=== PATIENT | male | born 1970 | race Caucasian/White ===

== ENCOUNTER 2016-03-15 14:00 | Emergency (ER) | payer MEDICAID ==
[2016-03-15 14:21] LABS: Hematocrit 41.6 % (42.0-52.0); Hemoglobin 14.4 gm/dL (13.5-18.0); Mean Cell Volume 89.5 fl (78-100); Mean Corpuscular Hgb Conc 34.6 g/dl (32-36); Mean Platelet Volume 9.4 fl (6.0-9.5); Neutrophil # 11.6 K/mm3 (1.3-6.0); Neutrophil % 67.9 % (42-75.0); Platelet Count 332 K/mm3 (150-450); Red Blood Count 4.65 M/mm3 (4.7-6.0); Red Cell Distribution Width 12.5 % (11.5-14.0); White Blood Count 17.2 K/mm3 (4.0-10.5)
[2016-03-15 14:38] LABS: Prothrombin Time (Patient) 10.8 Seconds (9.4-11.4)
[2016-03-15 14:39] LABS: INR 1.04 INR (0.90-1.10); Partial Thrombolplastin Time 25.1 Seconds (24-32)
[2016-03-15 14:47] LABS: Albumin * 3.4 gm/dl (3.4-5.0); Anion Gap 15.6 mmol/L (6.8-13.8); BUN/Creatinine Ratio 10.3 (9.0-21.6); Bilirubin, Total 0.9 mg/dL (0.0-1.1); Ca. Corrected For Albumin 8.2 mg/dL (8.4-10.2); Carbon Dioxide 22.4 mmol/L (24-32.6); Total Protein 6.5 gm/dL (6.2-8.2)
[2016-03-15 14:54] VITALS: BP 172/124
[2016-03-15] MEDS ORDERED: ROCURONIUM BROMIDE 10 MG/ML VIAL IV ONE (14:57)
[2016-03-15] MEDS ORDERED: PROPOFOL VIAL IV ONE (14:59)
[2016-03-15] MEDS ORDERED: SUCCINYLCHOLINE CHLORIDE 20 MG/ML VIAL IV ONE (14:59)
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
--- NOTE | 2016-03-18 13:37 | PN ---
Progess Note - Interim Narrative: 03/18/16 13:36 Addendum to H&P from 03/15/16 Time of service: 4884-0678 Critical Care time: 40 minutes ROS: unobtainable 03/18/16 13:39 Impression should read: Respiratory arrest Traumatic brain injury Open left tib-fib fracture with neurovascular injury Left femur fracture Left ankle derangement
== END 2016-03-15 14:45 | disposition short-term general hospital (02) ==
LOC: ER 14:00
PROC: 0BH17EZ Insertion of Endotracheal Airway into Trachea, Via Natural or Artificial Opening (ICD-10-PCS; principal; 2016-03-15)
PROC: 0T9B70Z Drainage of Bladder with Drainage Device, Via Natural or Artificial Opening (ICD-10-PCS; 2016-03-15)
DX: S06.9X0A Unspecified intracranial injury without loss of consciousness, initial encounter (principal); R09.2 Respiratory arrest; S82.202B Unspecified fracture of shaft of left tibia, initial encounter for open fracture type I or II; S82.402B Unspecified fracture of shaft of left fibula, initial encounter for open fracture type I or II; V43.52XA Car driver injured in collision with other type car in traffic accident, initial encounter; S72.92XA Unspecified fracture of left femur, initial encounter for closed fracture; M24.872 Other specific joint derangements of left ankle, not elsewhere classified; S84.802A Injury of other nerves at lower leg level, left leg, initial encounter; T68.XXXA Hypothermia, initial encounter; X31.XXXA Exposure to excessive natural cold, initial encounter
CPT/HCPCS: 31500; 36415; 51702; 71010; 80053; 85025; 85610; 85730; 86850; 86900; 99291; G0390

== ENCOUNTER 2016-08-21 12:49 | Emergency (ER) | payer MEDICAID ==
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
--- OUTSIDE RECORDS SUMMARY | 2016-08-21 13:26 | XMS REPORT | Continuity of Care Document ---
:1970 Author Organization [facility] [place] [address] Care Team Providers Name Role Phone Africa Godinez Primary Care Provider [phone] Source Comments This disclosure is being made pursuant to the [employer] program and maynot contain all information available regarding this patient.[facility] Active Allergies and Adverse Reactions Not on File Current Medications Be aware that medications may not be up to date as of this document. Alwaysverify current medications with the patient. Not on file Active Problems Not on file Social History Tobacco Use Types Packs/Day Years Used Date Never Assessed Plan of Care Health Maintenance Due Date Last Done Comments Retired-Pertussis Vaccine Adult 1987 Retired-Tetanus Vaccine Adult 1987 Retired-INFLUENZA VACCINE 11/11/2014 Results from Last 3 Months Not on file
[2016-08-21] MEDS ORDERED: DICYCLOMINE HCL 10 MG/ML AMPUL IM ONE ×2 (13:31→13:37)
[2016-08-21] MEDS ORDERED: NORMAL SALINE 1,000 ML IV ONE (13:31)
[2016-08-21 13:45] LABS: Hematocrit 43.5 % (42.0-52.0); Hemoglobin 15.3 gm/dL (13.5-18.0); Mean Cell Volume 86.1 fl (78-100); Mean Corpuscular Hemoglobin 30.3 pg (27-31); Mean Corpuscular Hgb Conc 35.2 g/dl (32-36); Mean Platelet Volume 9.5 fl (6.0-9.5); Neutrophil # 8.2 K/mm3 (1.3-6.0); Neutrophil % 73.3 % (42-75.0); Platelet Count 311 K/mm3 (150-450); Red Blood Count 5.05 M/mm3 (4.7-6.0); Red Cell Distribution Width 13.5 % (11.5-14.0); White Blood Count 11.2 K/mm3 (4.0-10.5)
[2016-08-21 13:58] LABS: Albumin * 3.5 gm/dl (3.4-5.0); Anion Gap 12.8 mmol/L (6.8-13.8); BUN/Creatinine Ratio 14.8 (9.0-21.6); Bilirubin, Total 0.7 mg/dL (0.0-1.1); Ca. Corrected For Albumin 8.9 mg/dL (8.4-10.2); Calcium * 8.8 mg/dL (7.9-10.9); Carbon Dioxide 28.2 mmol/L (24-32.6); Total Protein 7.2 gm/dL (6.2-8.2)
[2016-08-21] MEDS ORDERED: DIATRIZOATE MEGLU/DIATRIZO SOD 30 ML BTL PO ONE (14:28)
[2016-08-21] MEDS ORDERED: DIATRIZOATE MEGLU/DIATRIZO SOD 30 ML BTL ONE (14:30)
[2016-08-21 15:23] LABS: Urine Bilirubin Negative (NEGATIVE); Urine Blood Negative /ul (NEGATIVE); Urine Ketone Negative (NEGATIVE); Urine Nitrite Negative (NEGATIVE); Urine Protein Negative (NEGATIVE); Urine Specific Gravity <=1.005 SP.GR. (1.005-1.030); Urine Urobilinogen Normal (NORMAL)
[2016-08-21 15:31] LABS: Urine Appearance Clear; Urine Bacteria None Seen; Urine Color Yellow; Urine RBC None Seen /hpf (0-5); Urine WBC TRACE /hpf (0-5)
[2016-08-21 17:20] VITALS: BP 118/69
--- NOTE | 2016-08-21 17:26 | ERNOTE ---
GI Bleeding/Rectal Pain ER Date of Service: 08/21/16 Presenting Symptoms: rectal bleeding Time Seen by Provider: 08/21/16 13:15 Source: patient Exam Limitations: no limitations Immunizations: IMMUNIZATION HX Immunizations Up to Date Yes History of Influenza Vaccine No Hx Pneumococcal Vaccination No Allergies/Adverse Reactions: Allergies Penicillins Allergy (Verified 08/21/16 13:10) Home Medications: HOME MEDICATIONS Atenolol 11/18/14 [Last Taken Unknown] Cholesterol Med 11/18/14 [Last Taken Unknown] Omeprazole 11/18/14 [Last Taken Unknown] Aspirin 81 mg PO 08/21/16 [Last Taken Unknown] B12/Levomefolate Calcium/B-6 [Folbic Rf Tablet] 1 each PO DAILY 08/21/16 [Last Taken Unknown] Ciprofloxacin HCl [Cipro] 500 mg PO BID #20 tab 08/21/16 [Last Taken Unknown] Dicyclomine HCl [Bentyl] 20 mg PO QID PRN #15 tablet 08/21/16 [Last Taken Unknown] Fluticasone Propionate [Flonase] 1 spray NS DAILY 08/21/16 [Last Taken Unknown] metroNIDAZOLE [Flagyl] 500 mg PO QID #40 tab 08/21/16 [Last Taken Unknown] traMADol HCL [Ultram] 100 mg PO PRN 08/21/16 [Last Taken Unknown] Narrative: Patient presents for abdominal pain and some blood in stool. He relates that last night he vomited and had some abdominal cramping. He relates today he had diarrhea and had approx 1 tablespoon of blood with the diarrhea. his next stool had a minimal amount and he had no further bleeding noted. Moderate to severe abdominal cramps with this. Left sided primarily. No recent ABx or sick contacts. No bad food exposures. Timing: intermittent, other - waxing and waning Quality/Severity: Present: moderate Nausea/Vomiting: Present: other - no blood in vomit. Absent: blood, coffee grounds, blood streaked Abdominal Pain: Present: LUQ, LLQ Rectal Bleeding: Present: other - with diarrhea Associated Symptoms: Denies: maroon stools, back pain, light headedness Prior Treament: Denies: recently seen Review of Systems - Review of Systems Constitutional: Absent: fever Respiratory: Absent: shortness of breath Cardiology: Absent: chest pain Gastrointestinal/Abdominal: Present: See HPI Genitourinary: Absent: pain Musculoskeletal: Present: other - Ex fix left low leg. Skin: Absent: rash Neurological: Absent: weakness - Patient's Past Medical History Patient History - Medical: Cataracts Patient History - Cardiac/Respiratory: COPD, Hypertension Patient History - Cancer: No Hx of Cancer Patient History - Surgical Procedures: Cataracts Patient History - Other: None - Social History Living Situations: spouse Abuse History: No History of abuse Psych History: Hx of Anxiety, Hx of Depression Smoking Status: Current every day smoker Alcohol Use: none Drug Use: none - Immunizations Immunizations Up to Date: Yes Hx Pneumococcal Vaccination: No History of Influenza Vaccine: No Physical Exam - Physical Exam General Appearance: Present: alert, no apparent distress Eye Exam: Normal inspection: bilateral, PERRL: bilateral Ears, Nose, Throat: Present: normal ENT inspection Neck: Present: normal inspection Respiratory: Present: no respiratory distress, normal breath sounds, no accessory muscle use, lungs clear Cardiovascular/Chest: Present: regular rate, rhythm Gastrointestinal/Abdominal: Present: normal bowel sounds, nondistended, soft, other - moderate tendenress LLQ. No peritoneal signs, no giuarding or rebound. no peritoneal signs. Rectal Exam: Present: other - with female RN. No masses or hemorrhoids. No fisssure. No blood or stool in vault. Guaiac negative. Back Exam: Present: normal range of motion Extremity Exam: Present: other - chronic left leg changes, no evidence of active infection Neurological Exam: Present: alert, normal mood/affect, no motor/sensory deficits Skin Exam: Present: other - no petechiae ED Progress - Results and Orders Patient's Lab Results:: I have reviewed the patient's lab results. - Vital Signs Patient's Vital Signs:: I have reviewed the patient's vital signs. Vital Signs: Vital Signs 08/21/16 08/21/16 08/21/16 13:02 13:58 14:28 Temperature 36.5 C Pulse Rate 86 81 63 Respiratory 18 12 Rate Blood Pressure 126/79 140/81 136/86 O2 Sat by Pulse 100 99 100 Oximetry 08/21/16 08/21/16 14:55 15:46 Temperature 36.5 C Pulse Rate 76 Respiratory Rate Blood Pressure 134/89 140/91 O2 Sat by Pulse 100 100 Oximetry - CT/Ultrasound CT/Ultrasound Narrative: I reviewed CT report - Progress/Reassessment Chief Complaint: Rectal Bleeding Progress Note-Subjective: 08/21/16 17:24 Patient feels much improved. Only minimal tenderness LLQ. non-surgical. He is requesting to go home. Will treat for colitis with ABx. Nothing to suggest on-going GI bleeding. He is requesting to go home. Non-toxic. Nothing to suggest ischemic colitis. i stressed need for f/u tomorrow. I disucssed warning signs and reasons to return as well as the need for close f/u. Departure Clinical Impression: Abdominal pain, Colitis - Departure Disposition: Home self-care Condition: Stable Instructions: Colitis Additional Instructions: Rest. Fluids. Antibiotics as directed. Follow-up tomorrow with your primary doctor for a re-check. Return here for fever, increased abdominal pain, vomiting, any blood in stool or vomit or if your condition worsens or changes in any way. No alcohol while taking the flagyl. Referrals: Noreen Marino FNP [Primary Care Provider] - Prescriptions: Ciprofloxacin HCl [Cipro] 500 mg PO BID #20 tab Dicyclomine HCl [Bentyl] 20 mg PO QID PRN #15 tablet PRN Reason: Pain metroNIDAZOLE [Flagyl] 500 mg PO QID #40 tab
== END 2016-08-21 17:33 | disposition home or self-care (01) ==
LOC: ER 12:49
DX: K52.9 Noninfective gastroenteritis and colitis, unspecified (principal); R10.9 Unspecified abdominal pain; F17.200 Nicotine dependence, unspecified, uncomplicated